=== PATIENT | female | born 2000 | race Caucasian/White ===

== ENCOUNTER 2021-03-10 23:02 | Emergency (ER) | payer OTHER ==
--- NOTE | 2021-03-11 00:04 | CR ---
Indication: Finger pain Technique: Left 4th finger 3 views Comparison: None Findings: Bones: Relatively subtle acute nondisplaced fracture is present in the anterior base of the middle phalanx best visualized on the lateral image. No other osseous abnormality. Joint spaces: Unremarkable. Soft tissues: Moderate soft tissue swelling about the fracture. Dictated by Venancio Monsivais MD @ 03/11/2021 12:01:[address] Venancio Monsivais @ Mar 11 2021 12:01AM
[2021-03-11] MEDS ORDERED: Ibuprofen 600 MG Tab PO ONE (00:17)
--- NOTE | 2021-03-11 00:18 | EDM.PDOC ---
ED HPI GENERAL MEDICAL PROBLEM - General Chief Complaint: Upper Extremity Injury/Pain Stated Complaint: LT FINGER INJURY Time Seen by Provider: 03/10/21 23:24 - History of Present Illness INITIAL COMMENTS - FREE TEXT/NARRATIVE: HISTORY AND PHYSICAL: History of present illness: This is a 20-year-old female who presents ER today secondary to pain and discomfort in her right ring finger after getting jammed to the ball. Patient denies any other symptoms at this time. Patient is neurovascular intact and able to move her fingers per her report. Patient reports some discomfort from the PIP joint with some ecchymosis and swelling. Review of systems: As per history of present illness and below otherwise all systems reviewed and negative. Past medical history: As per history of present illness and as reviewed below otherwise noncontributory. Surgical history: As per history of present illness and as reviewed below otherwise noncontributory. Social history: No reported history of drug abuse. Family history: As per history of present illness and as reviewed below otherwise noncontributory. Physical exam: This patient was seen and evaluated during the 2019 SARS-CoV-2 novel coronavirus pandemic period. Community viral transmission is ongoing at time of this encounter and the emergency department is operating under pandemic response procedures. Constitutional: Patient is oriented to person, place, and time. Appears well- developed and well-nourished. No distress. HEENT: Moist mucous membranes Head: Normocephalic and atraumatic Eyes: Right eye exhibits no discharge. Left eye exhibits no discharge. No scleral icterus Neck: Normal range of motion. No tracheal deviation present. Cardiovascular: Normal rate and regular rhythm. Pulmonary: Effort normal, no respiratory distress. Abdominal: No distention Musculoskeletal: Normal range of motion Neurologic: Alert and oriented to person, place and time. Skin: [place], warm and dry. Psychiatric: Normal mood and affect. Behavior is normal. Judgment and thought content normal. Nursing note and vital signs have been reviewed Patient's ER physical exam is significant for swelling and ecchymosis to the volar aspect of her right ring finger over the PIP joint. Patient is neurovascular intact. Patient has good capillary refill and good sensation. Diagnostics: X-ray of right hand reveals a subtle acute nondisplaced fracture present in the anterior base of the middle phalanx. Therapeutics: AlumaFoam splint. Ibuprofen Assessment and plan: 20-year-old female who presents ER today secondary to injury to her right ring finger. Patient's x-ray reveals a subtle acute nondisplaced fracture at the anterior base of the middle phalanx of her right ring finger. Patient will be placed in an aluminum foam splint. Patient is neurovascular intact. Patient be given a prescription for ibuprofen and referred to orthopedic surgery. DME/splint note AlumaFoam finger splint ordered secondary to nondisplaced fracture at the anterior base of the middle phalanx of the right ring finger. Splint will need to stay on for 4 weeks. Splint As needed secondary to fracture and stabilize the fracture fragments. Reassessment at the time of disposition demonstrates that the patient is in no acute distress. The patient has remained stable throughout the entire ED visit and is without objective evidence for acute process requiring urgent int ervention or hospitalization. The patient is stable for discharge, counseling is provided as documented above, discussed symptomatic treatment and specific conditions for return. I have spoken with the patient/caregiver and discussed todays findings, in addition to providing specific details for the plan of care. Questions are answered and there is agreement with the plan. Definitive disposition and diagnosis as appropriate pending reevaluation and review of above. left ring finger Pain Score (Numeric/FACES): 9 - Related Data Allergies Allergy/AdvReac Type Severity Reaction Status Date / Time nut - unspecified Allergy Airway Verified 03/10/21 23:11 Tightness Home Meds: Home Meds Ibuprofen 600 mg PO Q6HR PRN #30 tablet 03/11/21 [Rx] Past Medical History - Past Health History Medical/Surgical History: Denies Medical/Surgical History - Infectious Disease History Infectious Disease History: Reports: None Social & Family History - Family History Family Medical History: No Pertinent Family History - Tobacco Use Tobacco Use Status *Q: Never Tobacco User - Caffeine Use Caffeine Use: Reports: None - Recreational Drug Use Recreational Drug Use: No Review of Systems - Review of Systems Review Of Systems: See Below ED EXAM, GENERAL - Physical Exam Exam: See Below Course - Vital Signs Last Recorded V/S: Last Vital Signs Temp 98.7 F 03/10/21 23:11 Pulse 90 03/10/21 23:11 Resp 17 03/10/21 23:11 BP 142/88 H 03/10/21 23:16 Pulse Ox 100 03/10/21 23:11 Departure - Departure Time of Disposition: 00:15 Disposition: Home, Self-Care 01 Condition: Good Clinical Impression: Fracture of phalanx of right ring finger Qualifiers: Encounter type: initial encounter Fracture type: closed Phalanx: middle Fractu re alignment: nondisplaced Qualified Code(s): S62.654A - Nondisplaced fracture of middle phalanx of right ring finger, initial encounter for closed fracture - Discharge Information Instructions: Finger Fracture, Adult Referrals: PCP,Not In Area [Primary Care Provider] - Additional Instructions: Your seen and evaluated in ER today secondary to a fracture to your right ring finger. The fracture is at the anterior base of your middle phalanx of your right ring finger. You will be placed in an aluminum foam splint for immobilization which will need to stay on for about 4 weeks. Please make an appointment to see orthopedic doctors for reevaluation. He will be given a prescription for ibuprofen to assist with pain and discomfort. You should also apply ice for the next 2 to 3 days to help decrease the amount of swelling. [facility] - [facility] Clinic [address], [address] [place] [address] The following information is given to patients seen in the emergency department who are being discharged to home. This information is to outline your options for follow-up care. We provide all patients seen in our emergency department with a follow-up referral. The need for follow-up, as well as the timing and circumstances, are variable depending upon the specifics of your emergency department visit. If you don't have a primary care physician on staff, we will provide you with a referral. We always advise you to contact your personal physician following an emergency department visit to inform them of the circumstance of the visit and for follow-up with them and/or the need for any referrals to a consulting specialist. The emergency department will also refer you to a specialist when appropriate. This referral assures that you have the opportunity for follow-up care with a specialist. All of these measure are taken in an effort to provide you with optimal care, which includes your follow-up. Under all circumstances we always encourage you to contact your private physician who remains a resource for coordinating your care. When calling for follow-up care, please make the office aware that this follow-up is from your recent emergency room visit. If for any reason you are refused follow-up, please contact the [facility] Emergency Department at and asked to speak to the emergency department charge nurse. [facility] - Primary Care [address] [place] [id number] [address] Sepsis Event Note (ED) - Focused Exam Vital Signs: Vital Signs Temp Pulse Resp BP Pulse Ox 03/10/21 23:16 142/88 H 03/10/21 23:11 98.7 F 90 17 100
[2021-03-11] MEDS ORDERED: Ibuprofen 600 MG Tab ONE (00:31)
== END 2021-03-11 00:43 | disposition home or self-care (01) ==
LOC: MW.ED 23:02
DX: S62.654A Nondisplaced fracture of middle phalanx of right ring finger, initial encounter for closed fracture (principal); Z91.018 Allergy to other foods; W23.0XXA Caught, crushed, jammed, or pinched between moving objects, initial encounter
CPT/HCPCS: 73140; 99283; A9270

== ENCOUNTER 2021-09-20 17:29 | Emergency (ER) | payer OTHER | END 2021-09-20 19:10 | disposition home or self-care (01) | LOC: MW.ED 17:29 | DX: T59.811A Toxic effect of smoke, accidental (unintentional), initial encounter (principal); F41.9 Anxiety disorder, unspecified; Z91.048 Other nonmedicinal substance allergy status | CPT/HCPCS: 71046; 71046-26; 99283-25 ==